=== PATIENT | male | born 2000 | race Caucasian/White ===

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

== ENCOUNTER 2018-04-18 22:11 | Emergency (ER) | payer OTHER, SELFPAY ==
[2018-04-18] MEDS: ONDANSETRON 4 MG ORAL DISINTEGRATING TAB (Q0162 PER 1MG) PO (23:39)
[2018-04-18] MEDS: CEPHALEXIN 500 MG CAP PO (23:45)
== END 2018-04-19 00:11 | disposition home or self-care (01) ==
LOC: M ED 04-19 00:11
DX: J03.90 Acute tonsillitis, unspecified (principal)
CPT/HCPCS: Q0162

== ENCOUNTER 2021-04-28 16:18 | Emergency (ER) | payer OTHER ==
[~2021-04-28] VITALS: Ht 185.4 cm; Wt 109.1 kg
[~2021-04-28 16:18] MED LIST: ACET650S3 PO; IBUP-1022 PO; KEFL500C17 PO; MAGICMW SSP; ZOFR4TAB14 PO
[2021-04-28] MEDS ORDERED: ACETAMINOPHEN 500 MG TAB PO ONE (17:55)
[2021-04-28] MEDS ORDERED: ONDANSETRON 4 MG ORAL DISINTEGRATING TAB PO ONE (17:55)
[2021-04-28] MEDS ORDERED: CYCL-707 PO (18:45)
[2021-04-28] MEDS ORDERED: diazePAM 5MG TABLET PO ONE (18:45)
[2021-04-28 18:55] VITALS: BP 155/94
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
== END 2021-04-28 19:06 | disposition home or self-care (01) ==
LOC: M ED 16:18
DX: S09.90XA Unspecified injury of head, initial encounter (principal); S16.1XXA Strain of muscle, fascia and tendon at neck level, initial encounter; Y04.8XXA Assault by other bodily force, initial encounter; Y92.230 Patient room in hospital as the place of occurrence of the external cause; Y93.9 Activity, unspecified; Y99.0 Civilian activity done for income or pay
CPT/HCPCS: 70450; 72125; 99284; Q0162

== ENCOUNTER → 2021-06-12 | Outpatient (REF) ==
[~2021-06-12] MED LIST changes: +CYCL-707 PO
== END ==
LOC: M EMP 09:44
PROVIDERS: ATTEND Family Medicine
DX: Z20.822 Contact with and (suspected) exposure to COVID-19 (principal)

== ENCOUNTER → 2022-10-14 | Outpatient (REF) | LOC: M EMP 12:05 | PROVIDERS: ATTEND Family Medicine | DX: Z11.52 Encounter for screening for COVID-19 (principal) ==

== ENCOUNTER 2023-04-24 04:08 | Emergency (ER) | payer OTHER ==
[~2023-04-24] VITALS: Ht 182.9 cm; Wt 128.8 kg
[2023-04-24 10:32] VITALS: BP 130/82; TEMP 97.9; O2SAT 98
[2023-04-24] MEDS ORDERED: CEPH500C PO (11:15)
== END 2023-04-24 11:23 | disposition home or self-care (01) ==
LOC: M ED 04:08
DX: F42.4 Excoriation (skin-picking) disorder (principal); Z79.899 Other long term (current) drug therapy

== ENCOUNTER → 2023-07-24 | Outpatient (REF) ==
[~2023-07-24] MED LIST changes: +CEPH500C PO
== END ==
LOC: M EMP 10:26
PROVIDERS: ATTEND Family Medicine
DX: Z11.52 Encounter for screening for COVID-19 (principal)